=== PATIENT | female | born 1940 | race Caucasian/White ===

== ENCOUNTER 2017-09-18 11:50 | Inpatient (IN) ==
[~2017-09-18 11:50] MED LIST: Esmolol Bolus Inj 100 MG/10 ML Vial IV.PUSH ONE; Glycopyrrolate Inj 1 MG/5 ML Syringe IV.PUSH ONE; Lidocaine PF 1% Inj 5 ML Syringe INFILTRATN ONE; Neostigmine Inj 5 MG/5 ML Syringe IV.PUSH ONE; Phenylephrine/NS 1000 MCG/10ML Syringe IV.PUSH ONE
[2017-09-18] MEDS ORDERED: Sodium Chlor 0.9% Inj 500 ML IV.SIG SCH (14:00)
[2017-09-18] MEDS ORDERED: Metoprolol Tartrate 25 MG Tablet PO SCH (14:00)
[2017-09-18] MEDS ORDERED: Chlorhexidine Gluconate 2% 1 Pack (2 Cloths) TOPICAL SCH (14:00)
[2017-09-18] MEDS ORDERED: Bupivacaine/Epinephrine Inj 0.25% 50 ML Vial ONE (14:11)
[2017-09-18] MEDS ORDERED: fentaNYL Citrate Inj 100 MCG/2 ML Ampul ONE (16:22)
[2017-09-18] MEDS ORDERED: Morphine Inj 4 MG/ML Vial ONE (16:22)
[2017-09-18] MEDS ORDERED: Ketorolac Inj 30 MG/ML (IVP) Vial IV.PUSH PRN (16:25)
[2017-09-18] MEDS ORDERED: Potassium Chlor 20 mEq Premix 20 MEQ/100 ML PIGGYBACK IV.SIG PRN (16:25)
[2017-09-18] MEDS ORDERED: Potassium Chlor 40 mEq Premix 40 MEQ/100 ML PIGGYBACK IV.SIG PRN (16:25)
[2017-09-18] MEDS ORDERED: *Meperidine Inj 25 MG/ML Vial PERIprocedural Use ONLY ONE (16:32)
[2017-09-18] MEDS ORDERED: Simethicone 125 MG Chew Tablet PO PRN (16:39)
[2017-09-18] MEDS ORDERED: Non-Formulary Drug (Albuterol Sulfate 2 PUFF) INHALATION PRN (16:39)
[2017-09-18] MEDS ORDERED: Pantoprazole Inj 40 MG Vial ONE (17:02)
[2017-09-18] MEDS ORDERED: Ketorolac Inj 30 MG/ML (IVP) Vial ONE (17:02)
[2017-09-18] MEDS ORDERED: KCL 20 mEq/D5W/NaCl 0.9% Inj 1,000 ML ONE (17:02)
[2017-09-18] MEDS: KCL 20 mEq/D5W/NaCl 0.9% Inj 1,000 ML IV.CONT SCH (18:25)
[2017-09-18] MEDS: Pantoprazole Inj 40 MG Vial IV.PUSH SCH (18:42)
[2017-09-18] MEDS: Budesonide-Formoterol 80/4.5 MCG 6.9 GM Inhaler INH SCH (20:48)
[2017-09-19] MEDS: KCL 20 mEq/D5W/NaCl 0.9% Inj 1,000 ML IV.CONT SCH ×2 (05:07→23:42)
[2017-09-19] MEDS ORDERED: Pantoprazole Sodium 20 MG DR Tablet PO SCH (09:00)
[2017-09-19] MEDS: Budesonide-Formoterol 80/4.5 MCG 6.9 GM Inhaler INH SCH ×2 (09:40→20:38)
[2017-09-19 11:28] LABS: Baso % (Auto) 0.4 % (0.0-2.0); Eos % (Auto) 0.4 % (0.0-4.0); Hematocrit 37.5 % (35.0-46.0); Hemoglobin 12.5 gm/dL (11.6-15.3); Lymph # (Auto) 0.6 th/mm3 (1.0-4.8); Lymph % (Auto) 9.8 % (9.0-44.0); Mean Corpuscular HGB Conc 33.5 % (32.0-36.0); Mean Corpuscular Hemoglobin 30.7 pg (27.0-34.0); Mean Corpuscular Volume 91.7 fL (80.0-100.0); Mean Platelet Volume 8.5 fL (7.0-11.0); Mono # (Auto) 0.7 th/mm3 (0.0-0.9); Mono % (Auto) 11.8 % (0.0-8.0); Neut # (Auto) 4.8 th/mm3 (1.8-7.7); Neut % (Auto) 77.6 % (16.0-70.0); Platelet Count 213 th/mm3 (150-450); Red Blood Count 4.09 mil/mm3 (4.00-5.30); Red Cell Distribution Width 12.9 % (11.6-17.2); White Blood Count 6.2 th/mm3 (4.0-11.0)
[2017-09-19 11:49] LABS: Calcium 8.1 mg/dL (8.5-10.1); Carbon Dioxide 22.7 meq/L (21.0-32.0); Potassium 3.6 meq/L (3.5-5.1)
[2017-09-19] MEDS: LORazepam 1 MG Tablet PO PRN ×2 (14:29→23:13)
--- NOTE | 2017-09-19 17:31 | P.PNCS ---
Subjective Interval history: C/R Surg POD #1 afebrile, VSS UO good emery PO on O2 Objective Vital Signs/Intake & Output: Vital Signs Intake & Output Result Diagrams: 09/19/17 10:32 09/19/17 10:32 Laboratory Results: Laboratory Results - last 24 hr Medications: Active Medications Objective Remarks: PE alert Abd - soft, flat, wound dry Assessment and Plan - Plan Stable post-op OOB start PO dc mendoza
[2017-09-19] MEDS: Pantoprazole Inj 40 MG Vial IV.PUSH SCH (17:36)
--- NOTE | 2017-09-19 22:54 | MP ---
cc: Khurram Rivas MD, Andrew H MD DATE OF OPERATION: 09/19/2017 PREOPERATIVE DIAGNOSIS: Serrated adenoma of the appendiceal orifice. PROCEDURE: Laparoscopic-assisted appendectomy and resection of cecal wall. POSTOPERATIVE DIAGNOSIS: Serrated adenoma of the appendiceal orifice. SURGEON: Khurram Rivas MD DESCRIPTION OF PROCEDURE: The patient was placed in the supine position. After adequate general anesthesia, her legs were placed in universal stirrups and supported appropriately. The abdomen and perineum were then prepped with Betadine solution and draped in the usual sterile fashion. Initially, a small incision was made in the left lower abdomen and a Veress needle inserted, pneumoperitoneum easily established. A 5 mm trocar was then placed under direct vision. A second trocar placed in the midline in the suprapubic position and a third trocar in the left upper quadrant. Inspection of the abdominal contents failed to reveal any obvious pathology. The small bowel appeared to be pretty unremarkable and was mostly down in the pelvis. The bowel was brought up out of the pelvis and mobilized toward the left upper quadrant. The cecum and appendix were visualized. The appendix was somewhat retrocecal. Traction was placed on the cecum and the cecum and right colon mobilized medially by dividing along the white line of Toldt. Dissection proceeded up the right gutter, freeing the right colon and mobilizing the terminal ileum. After adequate mobilization, the mesoappendix was divided using electrocautery in preparation for appendectomy. A small incision was made in the right lower abdomen and taken down to the subcutaneous tissues opening up the anterior rectus fascia, splitting the rectus muscles and opening up the posterior rectus sheath and peritoneum releasing the pneumoperitoneum. The appendix, cecum and terminal ileum were all prolapsed easily through the small incision. There did not appear to be any polypoid tissue palpable at the base of the appendix; however, this was the area identified by the previous colonoscopy. Therefore, the appendix was additionally skeletonized by dividing the mesoappendix using electrocautery. A rim of cecum was then included in the resection firing the TA-60 stapler across the cecal wall, staying away from the ileocecal valve. The specimen was then divided and removed. Hemostasis appeared adequate. The bowel returned to the abdominal cavity. The small transverse incision closed in 2 layers using #1 PDS suture to reapproximate the respective fascial layers. The subcu tissue was irrigated copiously and the skin closed with a running subcuticular Vicryl suture. The trocar sites were similarly closed with interrupted Vicryl sutures for the skin. Steri-Strips and Band-Aids applied. The patient tolerated the procedure quite well and was brought to the recovery room in stable condition. Sponge and needle counts were correct at the end of the procedure. Khurram Rivas MD [facility] , 10:35 PM , 10:53 PM
[2017-09-20] MEDS: LORazepam 1 MG Tablet PO PRN (08:02)
== END 2017-09-20 09:22 | disposition home or self-care (01) ==
LOC: HSDC 11:50 → HSDI 16:25 → N07 18:44
PROVIDERS: ADMIT Colon & Rectal Surgery; ATTEND Colon & Rectal Surgery
PROC: LAPAPPY (ICD-10-PCS; 2017-09-18 14:52)